=== PATIENT | male | born 1965 | race Caucasian/White ===

== ENCOUNTER 2016-09-25 15:39 | Emergency (ER) | payer OTHER ==
[~2016-09-25] VITALS: Ht 182.9 cm; Wt 103.0 kg
[~2016-09-25 15:39] MED LIST: BENAZEPRIL20 M1 PO; IBUPROFEN800 MG PO; OMEPRAZOLE20 MG PO
[2016-09-25 15:47] VITALS: BP 124/89
--- NOTE | 2016-09-25 16:32 | NUR ---
PATIENT CALLED FROM LOBBY AND NO ANSWER PATIENT IS LWBS.
== END 2016-09-25 16:22 | disposition left against medical advice (07) ==
LOC: MED 15:39
DX: R11.0 Nausea (principal); Z53.21 Procedure and treatment not carried out due to patient leaving prior to being seen by health care provider

== ENCOUNTER 2016-10-01 09:21 | Emergency (ER) | payer OTHER ==
[~2016-10-01] VITALS: Ht 185.4 cm; Wt 102.5 kg
[~2016-10-01 09:21] MED LIST changes: +BENA20TA16 PO; -BENAZEPRIL20 M1 PO; +IBUP800T99 PO; -IBUPROFEN800 MG PO; +OMEP20EC6 PO; -OMEPRAZOLE20 MG PO
[2016-10-01 09:28] VITALS: BP 133/78
[2016-10-01] MEDS ORDERED: NACL 0.9% 1,000 ML IV ONE (09:50)
[2016-10-01] MEDS ORDERED: MECLIZINE 25 MG TAB PO ONE (09:50)
[2016-10-01] MEDS ORDERED: LORazepam 2 MG/ML VIAL IVP ONE (09:50)
--- NOTE | 2016-10-01 10:00 | NUR ---
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 DENIES N/V/D; SKIN IS PINK/WARM/DRY; AAOX4 WITH EVEN AND STEADY GAIT; LUNGS CLEAR BL; HR EVEN AND REGULAR; PT DENIES ANY FEVER, CP, SOB, OR COUGH AT THIS TIME; PATIENT STATES PAIN OF 9/10 AT THIS TIME; VSS; PATIENT POSITIONED FOR COMFORT; HOB ELEVATED; BEDRAILS UP X2; BED DOWN. ER MD MADE AWARE OF PT STATUS.
--- NOTE | 2016-10-01 10:00 | NUR ---
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 DENIES N/V/D; SKIN IS PINK/WARM/DRY; AAOX4 WITH EVEN AND STEADY GAIT; LUNGS CLEAR BL; HR EVEN AND REGULAR; PT DENIES ANY FEVER, OR COUGH AT THIS TIME; PATIENT STATES PAIN OF 9/10 AT THIS TIME; VSS; PATIENT POSITIONED FOR COMFORT; HOB ELEVATED; BEDRAILS UP X2; BED DOWN. ER MD MADE AWARE OF PT STATUS.
[2016-10-01 10:02] LABS: BASOPHILS # (AUTO) 0.1 K/uL (0.00-0.22); BASOPHILS % (AUTO) 2.8 % (0.0-2.0); EOSINOPHILS # (AUTO) 0.2 K/uL (0-0.4); EOSINOPHILS % (AUTO) 3.7 % (0.0-4.0); HEMOGLOBIN 15.9 g/dL (12.0-18.0); LYMPHOCYTES # (AUTO) 1.5 K/uL (2.0-11.5); LYMPHOCYTES % (AUTO) 29.4 % (20.5-51.1); MEAN CORPUSCULAR HEMOGLOBIN 28 pg (27-31); MEAN CORPUSCULAR HGB CONC 33 g/dL (33-37); MEAN CORPUSCULAR VOLUME 83 fL (80-94); MONOCYTES # (AUTO) 0.4 K/uL (0.8-1.0); MONOCYTES % (AUTO) 7.9 % (1.7-9.3); NEUTROPHILS # (AUTO) 2.8 K/uL (1.8-7.7); NEUTROPHILS % (AUTO) 56.2 % (42.2-75.2); PLATELET COUNT (AUTO) 207 K/uL (140-450); RED BLOOD CELL COUNT(AUTO) 5.78 MIL/uL (4.20-6.10); RED CELL DISTRIBUTION WIDTH 14.2 % (11.6-13.7)
[2016-10-01 10:14] LABS: ANION GAP 10.9 (8-16); CREATININE 0.9 mg/dL (0.6-1.3); POTASSIUM 3.9 mmol/L (3.5-5.1)
[2016-10-01 10:21] LABS: ALBUMIN 3.9 g/dL (3.4-5.0); MAGNESIUM 1.9 mg/dL (1.8-2.4); TOTAL BILIRUBIN 0.4 mg/dL (0.0-1.0); TOTAL PROTEIN, SERUM 7.7 g/dL (6.4-8.2)
[2016-10-01 11:12] VITALS: BP 114/86
--- NOTE | 2016-10-01 11:12 | NUR ---
Patient discharged with v/s stable. Written and verbal after care instructions given and explained. Patient alert, oriented and verbalized understanding of instructions. Ambulatory with steady gait. All questions addressed prior to discharge. ID band removed. Patient advised to follow up with PMD. Rx of MECLIZINE HYDROCHLORIDE given. Patient educated on indication of medication including possible reaction and side effects. Opportunity to ask questions provided and answered.
== END 2016-10-01 11:12 | disposition home or self-care (01) ==
LOC: MED 09:22
DX: I10 Essential (primary) hypertension (principal)
CPT/HCPCS: 36415; 70450; 80053; 83735; 84484; 85025; 93005; 96361; 96374; 99285; J2060; J7030; J8597

== ENCOUNTER 2016-11-02 11:28 | Emergency (ER) | payer OTHER ==
[~2016-11-02] VITALS: Ht 182.9 cm; Wt 102.1 kg
[~2016-11-02 11:28] MED LIST changes: -BENA20TA16 PO; +BENAZEPRIL20 M1 PO; -IBUP800T99 PO; +IBUPROFEN800 MG PO; -OMEP20EC6 PO; +OMEPRAZOLE20 MG PO
[2016-11-02 11:59] VITALS: BP 157/94
--- NOTE | 2016-11-02 12:45 | NUR ---
Patient taken to bed 06 via wheelchair per water filtration technician.
--- NOTE | 2016-11-02 12:47 | NUR ---
PT PRESENTS TO ER W/C/O RLQ PAIN X4 DAYS. PT DENIES ANY MEDICAL HX. DENIES N/V/D; SKIN IS PINK/WARM/DRY; AAOX4 WITH EVEN AND STEADY GAIT; LUNGS CLEAR BL; HR EVEN AND REGULAR; PT DENIES ANY FEVER, CP, SOB, OR COUGH AT THIS TIME; PATIENT STATES PAIN OF 8/10 AT THIS TIME; PATIENT POSITIONED FOR COMFORT; HOB ELEVATED; BEDRAILS UP X2; BED DOWN. ALL MONITORS IN PLACED.
--- NOTE | 2016-11-02 12:49 | NUR ---
Dr. Gibson evaluating patient at bedside.
--- NOTE | 2016-11-02 13:00 | NUR ---
Torrie kendall in ED - 11/02/16 at 1327 by NANCY Patient taken to bed via wheelchair per senior pharmacy technician.
--- NOTE | 2016-11-02 14:59 | NUR ---
Patient discharged with v/s stable. Written and verbal after care instructions given and explained. Patient alert, oriented and verbalized understanding of instructions. Ambulatory with steady gait. All questions addressed prior to discharge. ID band removed. Patient advised to follow up with PMD. Rx of Motrin, Zofran and Cipro given. Patient educated on indication of medication including possible reaction and side effects. Opportunity to ask questions provided and answered.
[2016-11-02 15:03] VITALS: BP 139/80
== END 2016-11-02 14:59 | disposition home or self-care (01) ==
LOC: MED 11:28
DX: N39.0 Urinary tract infection, site not specified (principal); I10 Essential (primary) hypertension; Z90.49 Acquired absence of other specified parts of digestive tract; Z98.890 Other specified postprocedural states

== ENCOUNTER 2016-11-05 11:04 | Emergency (ER) | payer OTHER ==
[~2016-11-05] VITALS: Ht 182.9 cm; Wt 102.1 kg
[~2016-11-05 11:04] MED LIST changes: +BENA20TA16 PO; -BENAZEPRIL20 M1 PO; +IBUP800T99 PO; -IBUPROFEN800 MG PO; +OMEP20EC6 PO; -OMEPRAZOLE20 MG PO
[2016-11-05 11:14] VITALS: BP 147/95
--- NOTE | 2016-11-05 12:36 | NUR ---
Patient ambulated to bed 03.
[2016-11-05 12:57] VITALS: BP 147/95
--- NOTE | 2016-11-05 12:58 | NUR ---
51/M TO ED WITH C/O RLQ PAIN X1 WEEK. DENIES N/V/D. PAIN 11/13. BOWEL SOUNDS PRESENT X4Q. LUNGS CLEAR BILAT. HR EVEN AND REGULAR. AAOX4. VSS. NO SIGNS OF DISTRESS. ERMD TO SEE PT.
--- NOTE | 2016-11-05 13:30 | NUR ---
PATIENT ELOPED FROM FACILITY. DISCHARGE INSTRUCTIONS NOT GIVEN TO PATIENT. DR. OLIVA NOTIFIED.
== END 2016-11-05 13:30 | disposition left against medical advice (07) ==
LOC: MED 11:04
DX: R10.31 Right lower quadrant pain (principal); Z53.21 Procedure and treatment not carried out due to patient leaving prior to being seen by health care provider

== ENCOUNTER 2017-01-16 13:01 | Emergency (ER) | payer OTHER ==
[~2017-01-16] VITALS: Ht 182.9 cm; Wt 147.4 kg
[2017-01-16 13:07] VITALS: BP 141/85
--- NOTE | 2017-01-16 14:12 | NUR ---
Patient transferred to bed 5 via wheelchair by tech, accompanied by family. RN evaluating patient at bedside.
--- NOTE | 2017-01-16 14:13 | NUR ---
51M BIB FAMILY C/O RT GROIN AREA PAIN & SMALL REDNESS & SWELLING X 2 DAYS. PT STATES PAIN RADIATES TO LOWER BACK & R THIGH. PT STS PT HAD HERNIA REPAIR X 9 DAYS AGO. HX: HERNIA REPAIR, HTN. DENIES N/V/D. AAOX4 WITH EVEN AND DIFFICULT TO WALK; LUNGS CLEAR BL; HR EVEN AND REGULAR; PT DENIES ANY FEVER, CP, SOB, OR COUGH AT THIS TIME; PATIENT STATES PAIN OF 9/10 AT THIS TIME; VSS; PATIENT POSITIONED FOR COMFORT; HOB ELEVATED; BEDRAILS UP X2; BED DOWN. ER MD MADE AWARE OF PT STATUS.
[2017-01-16] MEDS ORDERED: NACL 0.9% 1,000 ML IV SCH (14:20)
[2017-01-16] MEDS ORDERED: ONDANSETRON 4 MG/2 ML VIAL IVP ONE (14:20)
--- NOTE | 2017-01-16 14:22 | NUR ---
DR TORRES EVALUATING PT AT BEDSIDE.
[2017-01-16] MEDS ORDERED: HYDROmorphone 1 MG/ML AMP IVP ONE (14:25)
--- NOTE | 2017-01-16 14:40 | NUR ---
INSERTED IV CATH 20G RAC. PT TOLERATED PROCEDURE WELL. IV PATENT/INTACT. ADMINISTERED IVF & MED ORDER.
[2017-01-16 14:48] LABS: APPEARANCE,URINE CLEAR (CLEAR); BILIRUBIN,URINE NEGATIVE (NEGATIVE); BLOOD, URINE TRACE-I (NEGATIVE); COLOR,URINE YELLOW (YELLOW); LEUKOCYTE ESTERASE ,URINE NEGATIVE (NEGATIVE); NITRITE, URINE NEGATIVE (NEGATIVE); PH,URINE 5.5 (5.0-9.0); PROTEIN,URINE NEGATIVE (NEGATIVE); UGLUCOSE NEGATIVE (NEGATIVE); UROBILINOGEN,URINE 0.2 EU/dL (0.2 - 1)
[2017-01-16 14:51] LABS: BASOPHILS # (AUTO) 0.1 K/uL (0.00-0.22); BASOPHILS % (AUTO) 1.5 % (0.0-2.0); EOSINOPHILS # (AUTO) 0.2 K/uL (0-0.4); EOSINOPHILS % (AUTO) 2.5 % (0.0-4.0); HEMATOCRIT 45.1 % (36-52); HEMOGLOBIN 14.9 g/dL (12.0-18.0); LYMPHOCYTES # (AUTO) 1.3 K/uL (2.0-11.5); LYMPHOCYTES % (AUTO) 16.9 % (20.5-51.1); MEAN CORPUSCULAR HEMOGLOBIN 27 pg (27-31); MEAN CORPUSCULAR HGB CONC 33 g/dL (33-37); MEAN CORPUSCULAR VOLUME 83 fL (80-94); MONOCYTES # (AUTO) 0.7 K/uL (0.8-1.0); MONOCYTES % (AUTO) 9.1 % (1.7-9.3); NEUTROPHILS # (AUTO) 5.6 K/uL (1.8-7.7); PLATELET COUNT (AUTO) 250 K/uL (140-450); RED BLOOD CELL COUNT(AUTO) 5.45 MIL/uL (4.20-6.10); RED CELL DISTRIBUTION WIDTH 13.1 % (11.6-13.7); WHITE BLOOD COUNT (AUTO) 7.9 K/uL (4.8-10.8)
[2017-01-16 14:52] LABS: BACTERIA,URINE RARE /HPF (None Seen); RBC,URINE O-5 /HPF (0-5); SQUAMOUS EPITHELIAL CELL,UR O-3 /LPF (0-3 (FEW)); WBC,URINE O-3 /HPF (0-5)
[2017-01-16 14:53] LABS: MUCUS,URINE 3+ /LPF (None Seen)
[2017-01-16 14:55] LABS: ANION GAP 9.1 (8-16); CALCIUM 8.8 mg/dL (8.5-10.1); CARBON DIOXIDE 30.9 mmol/L (21-32); CREATININE 0.9 mg/dL (0.7-1.3)
[2017-01-16 15:01] LABS: ALBUMIN 3.5 g/dL (3.4-5.0); TOTAL BILIRUBIN 0.4 mg/dL (0.0-1.0); TOTAL PROTEIN, SERUM 7.5 g/dL (6.4-8.2)
--- NOTE | 2017-01-16 15:22 | NUR ---
AT BEDSIDE.Patient appears to be resting comfortably in bed. Vital Signs within normal limits. Respirations even and unlabored.WILL CONTINUE TO MONITOR. Addendum: 01/16/17 at 1526 by [email or web address] PT STS PAIN 08/13 AT THIS TIME.
--- NOTE | 2017-01-16 17:32 | NUR ---
DR TORRES REEVALUATING PT AT BEDSIDE.
--- NOTE | 2017-01-16 17:40 | NUR ---
IV removed, catheter intact and site benign. Applied folded 4x4 gauze and tape to stop bleeding.
[2017-01-16 17:43] VITALS: BP 122/77
== END 2017-01-16 17:43 | disposition home or self-care (01) ==
LOC: MED 13:01
DX: R10.31 Right lower quadrant pain (principal); R42 Dizziness and giddiness; Z98.890 Other specified postprocedural states; Z79.899 Other long term (current) drug therapy
CPT/HCPCS: 36415; 80053; 81001; 82150; 83690; 85025; 96361; 96374; 96375; 99284; J1170; J2405; J7030

== ENCOUNTER 2017-10-25 15:02 | Emergency (ER) | payer OTHER ==
[~2017-10-25] VITALS: Ht 188 cm; Wt 103.4 kg
[~2017-10-25 15:02] MED LIST changes: +BENA20TA10 PO; -BENA20TA16 PO; +IBUP-1801 PO; -IBUP800T99 PO
[2017-10-25 15:05] VITALS: BP 156/89
[2017-10-25] MEDS: FAMOTIDINE 20 MG TAB PO ONE (15:50)
[2017-10-25 16:15] LABS: BASOPHILS % (AUTO) 0.6 % (0.0-2.0); EOSINOPHILS # (AUTO) 0.1 K/uL (0-0.4); EOSINOPHILS % (AUTO) 2.1 % (0.0-4.0); HEMATOCRIT 45.4 % (36-52); LYMPHOCYTES % (AUTO) 20.6 % (20.5-51.1); MEAN CORPUSCULAR HEMOGLOBIN 28 pg (27-31); MEAN CORPUSCULAR HGB CONC 33 g/dL (33-37); MEAN CORPUSCULAR VOLUME 83.2 fL (80-94); MONOCYTES # (AUTO) 0.3 K/uL (0.8-1.0); NEUTROPHILS # (AUTO) 3.4 K/uL (1.8-7.7); NEUTROPHILS % (AUTO) 69.7 % (42.2-75.2); PLATELET COUNT (AUTO) 182 K/uL (140-450); RED BLOOD CELL COUNT(AUTO) 5.45 MIL/uL (4.20-6.10); RED CELL DISTRIBUTION WIDTH 14.8 % (11.6-13.7); WHITE BLOOD COUNT (AUTO) 4.9 K/uL (4.8-10.8)
[2017-10-25 16:29] LABS: APPEARANCE,URINE CLEAR (CLEAR); BILIRUBIN,URINE NEGATIVE (NEGATIVE); BLOOD, URINE TRACE-L (NEGATIVE); COLOR,URINE YELLOW (YELLOW); LEUKOCYTE ESTERASE ,URINE NEGATIVE (NEGATIVE); NITRITE, URINE NEGATIVE (NEGATIVE); UGLUCOSE NEGATIVE (NEGATIVE)
[2017-10-25 16:39] LABS: ALBUMIN 3.6 g/dL (3.4-5.0); ANION GAP 7.9 (8-16); CARBON DIOXIDE 29.7 mmol/L (21-32); POTASSIUM 3.6 mmol/L (3.5-5.1); TOTAL BILIRUBIN 0.3 mg/dL (0.0-1.0)
[2017-10-25 16:51] LABS: RBC,URINE 0-5 (RARE) /HPF (0-5); WBC,URINE NONE SEEN /HPF (0-5)
[2017-10-25 17:13] VITALS: BP 125/82
== END 2017-10-25 17:13 | disposition home or self-care (01) ==
LOC: MED 15:02
DX: K30 Functional dyspepsia (principal); I10 Essential (primary) hypertension; Z79.899 Other long term (current) drug therapy
CPT/HCPCS: 36415; 80053; 81001; 82150; 83690; 85025; 99284

== ENCOUNTER 2022-03-17 11:00 | Emergency (ER) | payer MEDICAID, OTHER ==
[~2022-03-17] VITALS: Ht 180.3 cm; Wt 106.6 kg
[~2022-03-17 11:00] MED LIST changes: -BENA20TA10 PO; +LOT20 PO; +OMEP20EC10 PO; -OMEP20EC6 PO
[2022-03-17 11:07] VITALS: BP 175/90
[2022-03-17] MEDS ORDERED: LIDOCAINE MPF 1% 10 MG/ML VIAL INJ ONE (11:20)
--- NOTE | 2022-03-17 11:31 | NUR ---
L HAND 3RD DIGIT WOUND IRRIGATED.
--- NOTE | 2022-03-17 11:35 | NUR ---
56/M PRESENTS TO ED WITH C/O LACERATION TO 3RD DIGIT ON RIGHT HAND S/P CUTTING KALE TODAY. BLEEDING CONTROLLED WITH PRESSURE DRESSING IN PLACE, DENIES INJURY OR TRAUMA ANYWHERE ELSE. REPORTS 5/10 THROBBING PAIN.
--- NOTE | 2022-03-17 11:40 | NUR ---
MIQUEL HARE BEDSIDE FOR LACERTAION REPAIR
[2022-03-17] MEDS ORDERED: IBUP-2213 PO (12:02)
[2022-03-17] MEDS ORDERED: BACI1PAC6 TP (12:02)
--- NOTE | 2022-03-17 12:09 | NUR ---
L 3RD DIGIT DRESSED WITH NON ADHERENT X 1. + CMS
--- NOTE | 2022-03-17 12:19 | NUR ---
Patient discharged with v/s stable. Written and verbal after care instructions ABOUT LACERATION CARE given and explained. Patient alert, oriented and verbalized understanding of instructions. Ambulatory with steady gait. All questions addressed prior to discharge. ID band removed. Patient advised to follow up with PMD. Rx of BACITRACIN AND IBUPROFEN given. Patient educated on indication of medication including possible reaction and side effects. Opportunity to ask questions provided and answered.
== END 2022-03-17 12:19 | disposition home or self-care (01) ==
LOC: MED 11:00
DX: S61.213A Laceration without foreign body of left middle finger without damage to nail, initial encounter (principal); I10 Essential (primary) hypertension; Z79.899 Other long term (current) drug therapy; W45.8XXA Other foreign body or object entering through skin, initial encounter; Y93.89 Activity, other specified; Y92.89 Other specified places as the place of occurrence of the external cause; Y99.8 Other external cause status
CPT/HCPCS: 12001; 73130; 99283; J2001; Q0092

== ENCOUNTER 2022-03-19 11:03 | Emergency (ER) | payer MEDICAID ==
[~2022-03-19] VITALS: Ht 180.3 cm; Wt 105.2 kg
[~2022-03-19 11:03] MED LIST changes: +BACI1PAC6 TP; +IBUP-2213 PO
[2022-03-19 11:11] VITALS: BP 164/89
--- NOTE | 2022-03-19 11:14 | NUR ---
pt ambulated to bed 09
--- NOTE | 2022-03-19 11:25 | NUR ---
56 Y/O MALE BIB SELF PRESENTS TO ED FOR RECHECK OF SUTIRES ON THE LAC OF THE MIDDLE FINGER OF THE LEFT HAND. LAC ON 03/17/22 AFTER SLICING SOME KALE. AREA APPEARS DRY, NO REDNESS, NO SWELLING NOTED. pmh: DENIES nka med: denies
--- NOTE | 2022-03-19 11:47 | NUR ---
DR QUILES AT BEDSIDE FOR EVAL
--- NOTE | 2022-03-19 12:14 | NUR ---
Patient discharged with v/s stable. Written and verbal after care instructions ABOUT LAC CARE given and explained. Patient verbalized understanding. Ambulatory with steady gait. All questions addressed prior to discharge. Advised to follow up with PMD.
== END 2022-03-19 12:14 | disposition home or self-care (01) ==
LOC: MED 11:03
DX: S61.213D Laceration without foreign body of left middle finger without damage to nail, subsequent encounter (principal); Z79.899 Other long term (current) drug therapy; X58.XXXD Exposure to other specified factors, subsequent encounter
CPT/HCPCS: 90471; 90715; 99283

== ENCOUNTER 2022-03-26 10:59 | Emergency (ER) | payer MEDICAID ==
[~2022-03-26] VITALS: Ht 182.9 cm; Wt 107.0 kg
[2022-03-26 11:01] VITALS: BP 144/95
--- NOTE | 2022-03-26 11:05 | NUR ---
Pt ambulated to bed 6 with steady/even gait.
--- NOTE | 2022-03-26 11:05 | NUR ---
PATIENT AMBULATED TO BED 6
--- NOTE | 2022-03-26 11:11 | NUR ---
56 y/o M BIB self from home for follow-up of suture removal to left 3rd digit. Pt seen here 9 days for laceration sustained while cutting cucumber and cutting left 3rd digit. Pt denies pain, swelling, numbness, tingling. +PMSC in tact. No signs of infection to left 3rd digit. Band aid and gauze in place. PMH/Sx/Meds: Denies NKDA
--- NOTE | 2022-03-26 11:41 | NUR ---
DR. SMITH EVALUATING PATIENT AT BEDSIDE.
[2022-03-26] MEDS ORDERED: BACITRACIN OINT 500 UNITS/GM PKT TP ONE (12:00)
--- NOTE | 2022-03-26 12:05 | NUR ---
PTS THIRD DIGIT WAS WRAPPED WITH ROLL OF GAUZE AND TAPED. +CMS.
[2022-03-26 12:10] VITALS: BP 144/95
--- NOTE | 2022-03-26 12:10 | NUR ---
Patient discharged with v/s stable. Written and verbal after care instructions FOR SUTURE REMOVAL given and explained. Patient verbalized understanding. Ambulatory with steady gait. All questions addressed prior to discharge. Advised to follow up with PMD.
--- NOTE | 2022-03-26 12:39 | NUR ---
The patient's care was reviewed and supervised by Jacklyn Reed RN.
== END 2022-03-26 12:10 | disposition home or self-care (01) ==
LOC: MED 10:59
DX: S61.213D Laceration without foreign body of left middle finger without damage to nail, subsequent encounter (principal); Z48.02 Encounter for removal of sutures; Z79.1 Long term (current) use of non-steroidal anti-inflammatories (NSAID); Z79.2 Long term (current) use of antibiotics; Z79.899 Other long term (current) drug therapy; W26.0XXD Contact with knife, subsequent encounter
CPT/HCPCS: 99282

== ENCOUNTER 2023-09-27 11:59 | Emergency (ER) | payer MEDICAID, OTHER ==
[~2023-09-27] VITALS: Ht 182.9 cm; Wt 98.9 kg
[~2023-09-27 11:59] MED LIST changes: +BACI-418 TP; -BACI1PAC6 TP
[2023-09-27 12:33] VITALS: BP 147/82; PULSE 84; RESP 18; TEMP 97.1; O2SAT 97
[2023-09-27 13:02] LABS: APPEARANCE,URINE CLEAR (CLEAR); BILIRUBIN,URINE NEGATIVE (NEGATIVE); BLOOD, URINE NEGATIVE (NEGATIVE); COLOR,URINE YELLOW (YELLOW); LEUKOCYTE ESTERASE ,URINE NEGATIVE (NEGATIVE); NITRITE, URINE NEGATIVE (NEGATIVE); PH,URINE 6.5 (5.0-9.0); PROTEIN,URINE NEGATIVE (NEGATIVE); UGLUCOSE NEGATIVE (NEGATIVE); UROBILINOGEN,URINE 0.2 EU/dL (0.2 - 1)
[2023-09-27 13:05] LABS: BACTERIA,URINE OCCASSIONAL /HPF (None Seen); RBC,URINE 0-5 /HPF (0-5); SQUAMOUS EPITHELIAL CELL,UR 0-3 (FEW) /LPF (0-3 (FEW)); WBC,URINE 0-5 /HPF (0-5)
[2023-09-27 14:39] VITALS: BP 116/75; PULSE 80; RESP 18; TEMP 98.5; O2SAT 97
== END 2023-09-27 14:39 | disposition home or self-care (01) ==
LOC: MED 11:59
DX: R33.9 Retention of urine, unspecified (principal); E11.9 Type 2 diabetes mellitus without complications; I10 Essential (primary) hypertension; Z79.4 Long term (current) use of insulin; Z79.899 Other long term (current) drug therapy
CPT/HCPCS: 51702; 81001; 99284